=== PATIENT | female | born 1950 | race Caucasian/White ===

== ENCOUNTER → 2017-04-03 | Outpatient (CLI) | payer MEDICARE ==
[~2017-04-03] MED LIST: Acidophilus La100 GM; BONINE25 MG; DEXL60CA3; KETO15TC; LACTASE ENZ; LIDO5TO; LUTEIN40 MG; OXYB5; WARF6
== END ==
LOC: LAB SHORT 09:47
DX: N39.0 Urinary tract infection, site not specified (principal)
CPT/HCPCS: 87077; 87086; 87186

== ENCOUNTER 2017-07-26 06:14 | Day surgery (SDC) | payer MEDICARE ==
[~2017-07-26] VITALS: Ht 170.2 cm; Wt 117.6 kg
[2017-07-26] MEDS ORDERED: OXYB5 (06:38)
== END 2017-07-26 12:27 | disposition home or self-care (01) ==
LOC: ORSCSDS 06:14
PROVIDERS: Otolaryngology
PROC: 0GBJ0ZZ Excision of Thyroid Gland Isthmus, Open Approach (ICD-10-PCS; principal; 2017-07-26 07:30)
PROC: 0GTK0ZZ Resection of Thyroid Gland, Open Approach (ICD-10-PCS; principal; 2017-07-26 07:30)
DX: E04.2 Nontoxic multinodular goiter (principal); G47.33 Obstructive sleep apnea (adult) (pediatric); E66.01 Morbid (severe) obesity due to excess calories; Z68.41 Body mass index [BMI] 40.0-44.9, adult; Z87.891 Personal history of nicotine dependence; Z86.718 Personal history of other venous thrombosis and embolism; Z79.01 Long term (current) use of anticoagulants; Z79.899 Other long term (current) drug therapy
CPT/HCPCS: J0171; J0330; J1100; J2250; J2405; J2765; J3010; J7120

== ENCOUNTER → 2018-07-16 | Outpatient (CLI) | payer MEDICARE | END | disposition home or self-care (01) | LOC: LAB EV 10:10 → LAB SHORT 10:10 | DX: N39.0 Urinary tract infection, site not specified (principal) | CPT/HCPCS: 87086 ==

== ENCOUNTER → 2018-11-20 | Outpatient (CLI) | payer MEDICARE | LOC: LAB EV 15:17 → LAB SHORT 15:17 | DX: N39.0 Urinary tract infection, site not specified (principal) | CPT/HCPCS: 87086 ==

== ENCOUNTER → 2019-03-12 | Outpatient (CLI) | payer MEDICARE | END | disposition home or self-care (01) | LOC: LAB SHORT 11:00 → LAB EV 11:00 | DX: N39.0 Urinary tract infection, site not specified (principal) | CPT/HCPCS: 87086 ==

== ENCOUNTER 2019-05-07 12:45 | Observation (INO) | payer MEDICARE ==
[~2019-05-07] VITALS: Ht 167.6 cm; Wt 120.1 kg
[~2019-05-07 12:45] MED LIST changes: -BONINE25 MG; -WARF6
[2019-05-07 13:34] LABS: BASOPHILS ABSOLUTE AUTO 0.06 K/mm3 (0.00-0.23); BASOPHILS PERCENT AUTO 1 % (0-2); EOSINOPHILS ABSOLUTE AUTO 0.13 K/mm3 (0.00-0.68); EOSINOPHILS PERCENT AUTO 2 % (0-6); Hematocrit 46.5 % (33.0-51.0); IMMATURE GRAN ABSOLUTE AUTO 0.01 K/mm3 (0.00-0.10); IMMATURE GRAN PERCENT AUTO 0 % (0-1); LYMPHOCYTES ABSOLUTE AUTO 2.79 K/mm3 (0.84-5.20); LYMPHOCYTES PERCENT AUTO 34 % (21-46); MONOCYTES ABSOLUTE AUTO 0.34 K/mm3 (0.16-1.47); MONOCYTES PERCENT AUTO 4 % (4-13); Mean Corpuscular HGB 29.9 pg (26.0-34.0); Mean Corpuscular HGB Conc 32.3 g/dL (31.5-36.5); Mean Corpuscular Volume 93 fL (80-100); Mean Platelet Volume 10.3 fL (9.1-12.4); NEUTROPHILS ABSOLUTE AUTO 4.95 K/mm3 (1.96-9.15); NEUTROPHILS PERCENT AUTO 60 % (41-73); Platelet Count 180 K/mm3 (150-400); RDW Coefficient Variation 13.1 % (11.7-14.2); RDW Standard Deviation 44.9 fL (35.1-46.3); Red Blood Cell Count 5.01 M/mm3 (3.80-5.20); White Blood Cell Count 8.28 K/mm3 (4.00-11.30)
[2019-05-07 13:37] LABS: Alanine Aminotransfer (ALT/SGP 28 U/L (12-78); Albumin, Blood 3.5 g/dL (3.4-5.0); Albumin/Globulin Ratio 0.9 (0.8-1.8); Alk Phos 102 U/L (50-136); Anion Gap 8 mmol/L (6-16); Aspartate Aminotrans (AST/SGOT 25 U/L (12-37); Bilirubin, Total 0.4 mg/dL (0.1-1.0); Blood Urea Nitrogen 15 mg/dL (8-24); Bun/Creatinine Ratio 19.1 (12.0-20.0); CO2, Blood 26 mmol/L (21-32); Calcium, Blood 8.3 mg/dL (8.5-10.1); Chloride, Blood 105 mmol/L (98-108); Creatinine, Blood 0.79 mg/dL (0.40-1.00); Globulin, Blood 4.1 g/dL (2.2-4.0); Glomerular Filtration Rate >60 (60-); Glucose, Blood 129 mg/dL (70-99); Sodium, Blood 139 mmol/L (136-145); Total Protein, Blood 7.6 g/dL (6.4-8.2)
[2019-05-07 14:37] LABS: Source, Urine Clean Catch
[2019-05-07 14:51] LABS: Bilirubin, Urine Neg (Neg); Blood, Urine 2+ (Neg); Glucose Qualitative, Urine Neg (Neg); Ketones, Urine Neg (Neg); Leukocyte Esterase, Urine Neg (Neg); Nitrite, Urine Neg (Neg); Protein, Urine Neg (Neg); Urobilinogen, Urine NORM (Normal)
[2019-05-07 15:42] LABS: Appearance, Urine Clear (Clear); Color, Urine Yellow (P-Yellow)
[2019-05-07 15:43] LABS: Squamous Epithelial Cells Few /hpf (Few); White Blood Cells, Urine 0-2 /hpf (0-5)
[2019-05-07 15:48] LABS: Amorphous Mod (0-Heavy); Bacteria Few /hpf
[2019-05-07] MEDS ORDERED: EUTHYROX150 MC1 PO (19:21)
[2019-05-07] MEDS ORDERED: WARF6 PO (19:21)
[2019-05-07] MEDS ORDERED: OXYB5 PO (19:31)
[2019-05-07] MEDS ORDERED: MOTION RELIEF25 MG PO (19:32)
[2019-05-07 21:36] LABS: International Normalized Ratio 1.81; Prothrombin Time Results 18.7 Sec (9.7-11.5)
--- NOTE | 2019-05-07 23:53 | NUR ---
*LATE ENTRY* TRANSFER NOTE: 2138 HRS RECEIVED HANDOFF FROM [employer] SUPERVISOR ABILIO. PT TRANSFERED TO FLOOR VIA [place]. PT ORIENTED TO ROOM. CALL BUTTON WITH REACH. BED ALARM IS ON.
[2019-05-08 05:19] LABS: Hematocrit 41.5 % (33.0-51.0); Hemoglobin 13.7 g/dL (11.5-16.0); Mean Corpuscular HGB 30.4 pg (26.0-34.0); Mean Corpuscular Volume 92 fL (80-100); Mean Platelet Volume 10.3 fL (9.1-12.4); Platelet Count 181 K/mm3 (150-400); RDW Coefficient Variation 12.9 % (11.7-14.2); RDW Standard Deviation 43.8 fL (35.1-46.3); Red Blood Cell Count 4.51 M/mm3 (3.80-5.20); White Blood Cell Count 8.32 K/mm3 (4.00-11.30)
[2019-05-08 05:47] LABS: Alanine Aminotransfer (ALT/SGP 21 U/L (12-78); Albumin, Blood 2.9 g/dL (3.4-5.0); Albumin/Globulin Ratio 0.9 (0.8-1.8); Alk Phos 88 U/L (50-136); Anion Gap 7 mmol/L (6-16); Aspartate Aminotrans (AST/SGOT 16 U/L (12-37); Bilirubin, Total 0.4 mg/dL (0.1-1.0); Blood Urea Nitrogen 14 mg/dL (8-24); Bun/Creatinine Ratio 19.2 (12.0-20.0); CO2, Blood 26 mmol/L (21-32); Calcium, Blood 7.8 mg/dL (8.5-10.1); Chloride, Blood 105 mmol/L (98-108); Creatinine, Blood 0.73 mg/dL (0.40-1.00); Globulin, Blood 3.4 g/dL (2.2-4.0); Glomerular Filtration Rate >60 (60-); Glucose, Blood 103 mg/dL (70-99); Potassium, Blood 3.8 mmol/L (3.5-5.5); Sodium, Blood 138 mmol/L (136-145); Total Protein, Blood 6.3 g/dL (6.4-8.2)
--- NOTE | 2019-05-08 15:41 | NUR ---
SUMMARY PT IS A/O X4, PLEASANT AFFECT. SHE STATE CONTINUING DIZZINESS, "ROOM SPINNING" HOWEVER STATE IMPROVED FROM PREVIOUS DAY. SCHEDULED MECLAZINE CONTINUES. SHE HAD MRI TODAY, NEGATIVE FOR CVA. DR PARK IN TO SEE HER STATE WILL CONTINUE TO OBSERVE OVERNITE, POSSIBLE D/C HOME TOMORROW IF CONTINUES TO IMPROVE. PHYTHER IN THIS AFTERNOON, STATE UP w CONTACT GUARD ASSIST D/T CONTINUING VERTIGO. VSS. TELE NSR.
--- NOTE | 2019-05-08 23:23 | NUR ---
BEGINNING SHIFT SUMMARY ASSUMED CARE AT 1900. PT IS A/O X4, DENIES N/T AT THIS TIME. PT STATES SHE IS VERY DIZZY WITH ANY MOVEMENT. LUNG SOUNDS CLEAR, HEART SOUNDS REGULAR, DENIES ANY NEW SYMPTOMS. PT HAS TRACE EDEMA IN HER BLE'S. PT IS WEARING CPAP AND SLEEPING AT THIS TIME. CALL LIGHT IN REACH, BED IN LOWEST POSTION, WILL CONTINUE TO MONITOR.
--- NOTE | 2019-05-09 04:49 | NUR ---
END SHIFT SUMMARY NO ACUTE CHANGES NOTED T/O THE NIGHT. PT SLEPT T/O THE NIGHT UNTIL MORNING LABS CAME AND VITALS WERE TAKEN. PT WALKED TO THE BATHROOM THIS MORNING, PT FELT INITIALLY DIZZY BUT FEELS BETTER IN GENERAL, PT STILL FEELS DIZZY AFTERWARDS. CALL LIGHT IN REACH, BED IN LOWEST POSTION, WILL CONTINUE TO MONITOR UNTIL DAYSHIFT NURSE ARRIVES.
[2019-05-09 05:34] LABS: International Normalized Ratio 1.99; Prothrombin Time Results 20.5 Sec (9.7-11.5)
--- NOTE | 2019-05-09 13:17 | NUR ---
DISCHARGE PT STATE VERTIGO IMPROVED SOMEWHAT HOWEVER CONTINUES. PHYTHER IN FOR EVAL/TX, DR PARK IN TO ASSESS, STATE PT MAY GO HOME TODAY & WILL HAVE HOMEHEALTH F/U FOR VERTIGO TX'S. PT IS PLEASANT/APPRECIATIVE, STATE FEELS READY TO GO HOME TODAY. IUV D/C INTACT. D/C INSTRUCT REVIEWED. SCRIPTS FAXED TO [facility]. PT DAUGHTER & FRIEND ASSIST HER TO DRESS/GATHER BELONGINGS. W/C ESCORT FROM HOSP PROVIDED.
== END 2019-05-09 13:34 | disposition home health service (06) ==
LOC: ER 12:45 → MEDS 12:46 → ERHOLD 12:46 → MEDS 21:34
PROVIDERS: Emergency Medicine; ADMIT Internal Medicine
DX: H81.10 Benign paroxysmal vertigo, unspecified ear (principal); I11.9 Hypertensive heart disease without heart failure; E86.0 Dehydration; E03.9 Hypothyroidism, unspecified; I26.99 Other pulmonary embolism without acute cor pulmonale; Z79.01 Long term (current) use of anticoagulants; Z79.899 Other long term (current) drug therapy; Z88.0 Allergy status to penicillin; Z88.5 Allergy status to narcotic agent; Z88.8 Allergy status to other drugs, medicaments and biological substances
CPT/HCPCS: 36415; 70450; 70551; 80053; 81001; 84484; 85025; 85027; 85610; 93005; 93010; 96361; 96372; 96374; 96375; 96376; 97110; 97116; 97162; 99285-25; A9270-GY; G0378; J1650; J2060; J2405; J2765; J7030; P9612

== ENCOUNTER → 2019-12-15 | Outpatient (CLI) | payer MEDICARE ==
[~2019-12-15] MED LIST changes: +EUTHYROX150 MC1 PO; +MOTION RELIEF25 MG PO; +OXYB5 PO; +WARF6 PO
== END ==
LOC: LAB EV 16:16 → LAB SHORT 16:16
DX: N39.0 Urinary tract infection, site not specified (principal)
CPT/HCPCS: 87086

== ENCOUNTER 2021-07-30 13:02 | Emergency (ER) | payer MEDICARE ==
[~2021-07-30] VITALS: Ht 167.6 cm; Wt 127.0 kg
[2021-07-30 14:03] LABS: BASOPHILS ABSOLUTE AUTO 0.07 K/mm3 (0.00-0.23); BASOPHILS PERCENT AUTO 1 % (0-2); EOSINOPHILS ABSOLUTE AUTO 0.28 K/mm3 (0.00-0.68); EOSINOPHILS PERCENT AUTO 4 % (0-6); Hematocrit 45.8 % (33.0-51.0); Hemoglobin 14.9 g/dL (11.5-16.0); IMMATURE GRAN ABSOLUTE AUTO 0.02 K/mm3 (0.00-0.10); IMMATURE GRAN PERCENT AUTO 0 % (0-1); LYMPHOCYTES ABSOLUTE AUTO 3.12 K/mm3 (0.84-5.20); LYMPHOCYTES PERCENT AUTO 39 % (21-46); MONOCYTES ABSOLUTE AUTO 0.59 K/mm3 (0.16-1.47); MONOCYTES PERCENT AUTO 7 % (4-13); Mean Corpuscular HGB 29.9 pg (26.0-34.0); Mean Corpuscular HGB Conc 32.5 g/dL (31.5-36.5); Mean Corpuscular Volume 92 fL (80-100); Mean Platelet Volume 9.5 fL (9.1-12.4); NEUTROPHILS ABSOLUTE AUTO 3.95 K/mm3 (1.96-9.15); NEUTROPHILS PERCENT AUTO 49 % (41-73); Platelet Count 220 K/mm3 (150-400); RDW Coefficient Variation 13.1 % (11.7-14.2); RDW Standard Deviation 44.5 fL (35.1-46.3); Red Blood Cell Count 4.98 M/mm3 (3.80-5.20); White Blood Cell Count 8.03 K/mm3 (4.00-11.30)
[2021-07-30 14:21] LABS: Albumin, Blood 3.4 g/dL (3.4-5.0); Albumin/Globulin Ratio 0.9 (0.8-1.8); Bilirubin, Total 0.3 mg/dL (0.1-1.0); Bun/Creatinine Ratio 17.9 (12.0-20.0); Creatinine, Blood 0.95 mg/dL (0.40-1.00); Globulin, Blood 3.9 g/dL (2.2-4.0); Potassium, Blood 4.2 mmol/L (3.5-5.5); Total Protein, Blood 7.3 g/dL (6.4-8.2)
[2021-07-30] MEDS ORDERED: XARELTO20 MG PO (14:56)
[2021-07-30] MEDS ORDERED: Lovastatin20 MG PO (14:56)
== END 2021-07-30 23:55 | disposition home or self-care (01) ==
LOC: ER 13:02
PROVIDERS: Student in an Organized Health Care Education/Training Program
DX: G95.89 Other specified diseases of spinal cord (principal); R32 Unspecified urinary incontinence; R15.9 Full incontinence of feces; E03.9 Hypothyroidism, unspecified; K21.9 Gastro-esophageal reflux disease without esophagitis; Z88.5 Allergy status to narcotic agent; Z88.0 Allergy status to penicillin; Z88.8 Allergy status to other drugs, medicaments and biological substances; Z91.09 Other allergy status, other than to drugs and biological substances; Z86.711 Personal history of pulmonary embolism; Z79.01 Long term (current) use of anticoagulants; Z79.899 Other long term (current) drug therapy
CPT/HCPCS: 36415; 51798; 72148; 80053; 85025; 85379

== ENCOUNTER 2022-08-09 11:37 | Day surgery (SDC) | payer MEDICARE ==
[~2022-08-09] VITALS: Ht 167.6 cm; Wt 128.1 kg
[~2022-08-09 11:37] MED LIST changes: +Amiodarone HCl200 MG PO; +FURO20; +FURO20 PO; +Lovastatin20 MG PO; +POTA20LUD PO; +XARELTO20 MG PO
[2022-08-09] MEDS ORDERED: MEDR5 PO (11:55)
--- NOTE | 2022-08-09 11:57 | NUR ---
PT STATES AFTER BACK SURGERY WAS SICK WAKING UP FROM ANETHESIA
--- NOTE | 2022-08-09 12:05 | NUR ---
08/09/22 1205 Gaviota Burnett AT 1157 PLEDGET AT 1153
[2022-08-09 13:33] VITALS: BP 142/80
== END 2022-08-09 13:47 | disposition home or self-care (01) ==
LOC: ORSCSDS 11:37
PROVIDERS: Ophthalmology
PROC: 08DK3ZZ Extraction of Left Lens, Percutaneous Approach (ICD-10-PCS; principal; 2022-08-09 13:00)
DX: H25.12 Age-related nuclear cataract, left eye (principal); G47.33 Obstructive sleep apnea (adult) (pediatric); I48.91 Unspecified atrial fibrillation; Z79.01 Long term (current) use of anticoagulants; Z79.899 Other long term (current) drug therapy
CPT/HCPCS: J2001; J2250; J3010; J3301; J7040; V2632

== ENCOUNTER 2022-08-18 11:46 | Day surgery (SDC) | payer MEDICARE ==
[~2022-08-18] VITALS: Ht 167.6 cm; Wt 128.6 kg
[~2022-08-18 11:46] MED LIST changes: +MEDR5 PO
--- NOTE | 2022-08-18 12:12 | NUR ---
08/18/22 1212 Gaviota Burnett AT 1205 PLEDGET AT 1210
[2022-08-18 13:46] VITALS: BP 111/66
--- NOTE | 2022-08-18 13:51 | NUR ---
08/18/22 1351 LeronaKimberly davidson IV REMOVED, SITE WNL
== END 2022-08-18 13:51 | disposition home or self-care (01) ==
LOC: ORSCSDS 11:46
PROVIDERS: Ophthalmology
PROC: 08RJ3JZ Replacement of Right Lens with Synthetic Substitute, Percutaneous Approach (ICD-10-PCS; principal; 2022-08-18 13:00)
DX: H25.11 Age-related nuclear cataract, right eye (principal); Z96.1 Presence of intraocular lens; E03.9 Hypothyroidism, unspecified; G47.33 Obstructive sleep apnea (adult) (pediatric); Z87.891 Personal history of nicotine dependence; I48.91 Unspecified atrial fibrillation; Z79.01 Long term (current) use of anticoagulants; Z86.718 Personal history of other venous thrombosis and embolism; Z79.899 Other long term (current) drug therapy; E66.01 Morbid (severe) obesity due to excess calories; Z68.42 Body mass index [BMI] 45.0-49.9, adult
CPT/HCPCS: J2250; J3010; J3301; J7040; V2632

== ENCOUNTER → 2024-01-18 | Outpatient (CLI) | payer MEDICARE | LOC: LAB 07:46 → LAB SHORT 07:46 | DX: N95.0 Postmenopausal bleeding (principal) | CPT/HCPCS: 88305 ==